=== PATIENT | female | born 1935 | race Caucasian/White ===

== ENCOUNTER 2017-02-19 15:58 | Inpatient (IN) | payer MEDICARE, BC ==
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
--- NOTE | ~2017-02-19 | HP ---
History And Physical [address] [place]. [address] NAME: MOHSEN KILGORE : 33 STATUS : ADM [facility]#: [id number] AGE: 81 ADM/REG DATE : 02/19/17 MR#: [id number] REPORT SERV DATE: 02/19/17 DICTATED BY: ARTURO CERRATO DATE: 02/19/17 REPORT STATUS : Draft TRANSCRIBED BY: MODL DATE: 02/19/17 DATE OF ADMISSION: 02/19/2017 ADMISSION DIAGNOSIS: Inferior IL. HISTORY OF PRESENT ILLNESS: Ms Kilgore is an 81-year-old female who presented to [facility] ED via EMS with a presumptive diagnosis of an acute inferior IL based on EKG in the field. I discussed the case with the ER physician who had reviewed the EKG, and based on the presumptive diagnosis of inferior IL, we decided to bring the patient to the color laboratory technician emergently upon arrival. I briefly evaluated her and had a conversation with her before we proceeded with PCI. She informed me she was having severe chest discomfort. Per EMS, this has started three days prior, but was acutely worse today. Apparently, it took significant convincing to have the patient come with EMS as she was initially resistant. She denied any syncope or palpitations. She denied any radiation of the pain. History, otherwise, limited due to the patient's discomfort. PAST MEDICAL HISTORY: 1. Atrial fibrillation. 2. History of right upper extremity embolectomy from the brachial artery, on chronic anticoagulation. 3. Diabetes. 4. Hypertension. 5. Chronic kidney disease. Most recent blood work demonstrating a creatinine of approximately 2.5. 6. History of CVA. 7. History of colon cancer. 8. Osteoarthritis. 9. History of DVT. 10.History of IVC filter placement. MEDICATIONS: Full med list not available at the time of dictation, but per medical record from prior admission, the patient was on amiloride/HCTZ, Lasix, Lantus, Humalog, Lopressor, and potassium chloride. FAMILY HISTORY: Positive for coronary artery disease. The patient's son had prior . PAST SURGICAL HISTORY: Cholecystectomy, hernia repair, and leg fracture. ALLERGIES: INTOLERANCE TO PENICILLIN AND CODEINE. SOCIAL HISTORY: The patient is , lives in [place]. She has a son and appears that a daughter who . History And Physical [address] [place]. [address] NAME: MOHSEN KILGORE : 33 STATUS : ADM IN PAT#: [id number] AGE: 81 ADM/REG DATE : 02/19/17 MR#: [id number] REPORT SERV DATE: 02/19/17 DICTATED BY: ARTURO CERRATO DATE: 02/19/17 REPORT STATUS : Draft TRANSCRIBED BY: MODL DATE: 02/19/17 REVIEW OF SYSTEMS: Limited review of systems is negative except as per HPI. PHYSICAL EXAMINATION: VITAL SIGNS: Upon arrival to color laboratory technician, heart rate approximately 90, blood pressure 140/90, and respiratory rate 20. 8/10 chest discomfort. HEENT: Sclerae are anicteric. Mucous membranes are moist. NECK: Supple. CARDIOVASCULAR: Irregular S1 and S2. No murmurs appreciated. PULMONARY: Diminished breath sounds bilaterally, but clear with no wheezes or rales anterolaterally. ABDOMEN: Soft, nondistended, and nontender. EXTREMITIES: The patient is unable to fully flex/extend her legs and reports being in a wheelchair chronically. She has no edema, no ulcerations. Femoral pulses are 2+ bilaterally. LABS: Available labs at time of dictation include WBC 12.7, hemoglobin 13.3, hematocrit 39.1, and platelets 216. INR of 1.7. Additional labs pending. EKG: EKG demonstrated atrial fibrillation with ST elevations in inferior leads and ST depressions in V1 through V3 consistent with acute evolving inferior IL. Cardiac cath dictated separately, but notable for single-vessel obstructive disease involving the mid RCA, thrombotic, which was treated with a 2.5 x 32 MARJ. IMPRESSIONS/RECOMMENDATIONS: 1. Acute inferior myocardial infarction, status post primary percutaneous coronary intervention to the culprit mid right coronary artery with a drug-eluting stent. 2. Chronic kidney disease. 3. Diabetes. 4. Atrial fibrillation. 5. Chronic anticoagulation with Coumadin. The patient will be admitted to CCU. She will be treated with dual anti-platelet therapy with an aspirin and Plavix. We will continue warfarin and discuss long-term anticoagulant strategies including transition to non-vitamin K antagonist versus Plavix/Coumadin plus or minus short course of aspirin. We will perform an echocardiogram in the morning as an LV gram was not performed due to renal insufficiency. We will hydrate the patient and manage her diabetes with a basal bolus insulin regimen. She will be treated with standard post IL medications including beta-godwin, and we will consider addition of AFRICA prior to discharge based on creatinine. We will not start this medication yet. Additional recommendations forthcoming. ARIEL/LYNDA Arturo Campos History And Physical [address] [address] NAME: MOHSEN KILGORE : 33 STATUS : ADM IN PAT#: [id number] AGE: 81 ADM/REG DATE : 02/19/17 MR#: [id number] REPORT SERV DATE: 02/19/17 DICTATED BY: ARTURO CERRATO DATE: 02/19/17 REPORT STATUS : Draft TRANSCRIBED BY: MODAnibal DATE: 02/19/17 MD Saqib / [id number] CC: Arturo Cerrato MD
--- NOTE | ~2017-02-19 | DS ---
Discharge Summary [facility] [address] [place]. [address] NAME: MOHSEN KILGORE : 33 STATUS : DIS IN PAT#: [id number] AGE: 81 ADM/REG DATE : 02/19/17 MR#: [id number] REPORT SERV DATE: 03/03/17 DICTATED BY: ARTURO CERRATO DATE: 03/02/17 REPORT STATUS : Draft TRANSCRIBED BY: LYNDA DATE: 03/02/17 Data Collection from hospitalization DISCHARGE DIAGNOSES: 1. Acute inferior ST-elevation myocardial infarction. 2. Coronary artery disease. 3. Left ventricular dysfunction. 4. Diabetes. 5. Hypertension. 6. Chronic kidney disease. 7. Atrial fibrillation. 8. History of cerebrovascular accident. 9. History of colon cancer. 10.Osteoarthritis. 11.Former tobacco use. CONSULTATIONS: Lola Leahy NP PROCEDURES PERFORMED: Cardiac catheterization and percutaneous coronary intervention on 02/19/2017. MEDICATIONS: Prinivil 2.5 mg daily, Coumadin 5 mg daily, and Klor-Con 10 mEq daily. CONDITION AT DISCHARGE: Stable. DISPOSITION: The patient was discharged home on a low-sodium, cardiac diet with activities as instructed. She would follow up with me three weeks following discharge. She would follow up in the Coumadin Clinic at [facility] one week following discharge. HOSPITAL COURSE: This is an 81-year-old female who presented to the [facility] Emergency Department via EMS with a presumptive diagnosis of acute inferior myocardial infarction based on the EKG in the field. The case was discussed with the emergency room physician who had reviewed the EKG, and based on the presumptive diagnosis of inferior myocardial infarction, it was felt we would need to bring the patient to the cardiac industrial laborer emergently upon arrival. Apparently, it had taken significant convincing to have the patient come with EMS and she was initially resistant. She was admitted to the hospital at this time for further evaluation and treatment. Upon admission, INR level was 1.7. Her white blood cell count was 12.7. EKG demonstrated atrial fibrillation with ST elevation in the inferior leads and ST depressions in V1 through V3 consistent with acute evolving inferior myocardial infarction. She was taken to the cardiac industrial laborer where she underwent the above-mentioned procedure. She tolerated this well, and there were no complications. She was found to have single-vessel obstructive disease involving the mid RCA, thrombotic, which was treated with drug-eluting stent. She was admitted to the CCU. She was going to be treated with dual anti-platelet therapy with aspirin and Plavix. Warfarin was going to be continued. We discussed long-term anticoagulant strategies including transition to non-vitamin K antagonist versus Plavix/Coumadin plus or minus a short course of aspirin. Echocardiogram was going to be Discharge Summary [facility] [address] [place]. [address] NAME: MOHSEN KILGORE : 33 STATUS : DIS IN PAT#: [id number] AGE: 81 ADM/REG DATE : 02/19/17 MR#: [id number] REPORT SERV DATE: 03/03/17 DICTATED BY: ARTURO CERRATO DATE: 03/02/17 REPORT STATUS : Draft TRANSCRIBED BY: LYNDA DATE: 03/02/17 performed. The patient was going to be hydrated. We would manage her diabetes with a bolus insulin regimen. She would be treated with standard post myocardial infarction medications including beta-godwin. We would consider the addition of AFRICA inhibitor prior to discharge based on her creatinine. We would not start this medication yet. She was seen in consultation by Lola Leahy regarding diabetes management. The patient takes Humalog and Lantus at home, but she self medicates herself depending on what she thinks her blood sugar coverage should be. She does not see her primary care physician routinely. The patient has no consistency of blood sugar monitoring. She was going to be placed on a 1500-calorie diabetic/cardiac diet when she was able to eat. She would be placed on level 2 sliding scale insulin. She was going to undergo diabetes education. Hemoglobin A1c was going to be checked. The next day, her sheath was removed. There was no bleeding. She was tearful. She had no chest pain. She said she was feeling better. INR level was 1.7. Creatinine level was 1.99. Aspirin and Plavix were continued. Warfarin was going to be resumed. Coreg was increased. Echocardiogram was performed. She was evaluated by Occupational Therapy. On 02/21/2017, she said she was feeling better. She had no chest pain. White count was 10.2. Telemetry revealed atrial fibrillation. Low-dose AFRICA inhibitor was added. She was encouraged to mobilize. She had no pedal edema. Her lungs were clear. Discharge planning was performed. Her Levemir was increased. NovoLog was increased. She was still receiving level 2 sliding scale insulin. On 02/22/2017, she said she felt well. She had no chest pain. Her heart rate was controlled. INR level was 1.8. Aspirin, Plavix, and Coumadin were continued, but we would consider stopping aspirin in two to four weeks when INR level was greater than 2. She was going to be enrolled in the Coumadin Clinic. Discharge instructions were given. Due to her improved and stable condition, she was discharged home with the above-stated instructions. Information collected by: Pamela Pendleton I submit the above information as my discharge summary. TG/MODL rAturo Cerrato MD / [id number] CC: Arturo Cerrato MD
[~2017-02-19 15:58] MED LIST: AMILOR/HCTZ1 TAB PO; C5 PO; CAT1 PO; CAT2 PO; COR40 PO; DIABETA5 PO; GLUCPH PO; HALF81 PO; HCTZ25B PO; HEMOCYTET PO; HUMALOG; HUMALOG SC; KLOR-CON 1010 MEQ PO; L40 PO; L80 PO; LANTUS SC; LOP25 PO; LOVENOX1C SC; MONODOX100 MG PO; PLAVIX PO
[2017-02-19 16:34] LABS: CREATININE 1.7 MG/DL (0.55-1.02)
[2017-02-19 16:51] LABS: INTERNATIONAL NORMAL RATI 1.7 UNITS (-); PARTIAL THROMBO TIME 28.6 SEC (22.5-37.2)
[2017-02-19 16:52] LABS: BASOPHILS 0.2 %; BASOPHILS ABSOLUTE 0.02 10/3/uL (0.0-0.16); EOSINOPHILS 2.2 %; EOSINOPHILS ABSOLUTE 0.28 10/3/uL (0.0-0.53); HEMATOCRIT 39.1 % (36.0-48.0); HEMOGLOBIN 13.3 g/dL (12.0-16.0); IMMATURE GRANULOCYTES 0.3 %; IMMATURE GRANULOCYTES ABSOLUTE 0.04 10/3/uL (0.0-0.11); LYMPHOCYTES 14.5 %; LYMPHOCYTES ABSOLUTE 1.84 10/3/uL (0.67-4.30); MEAN CORPUSCULAR HEMOGLOB 28.5 pg (26.0-34.0); MEAN CORPUSCULAR VOLUME 83.9 fL (80-100); MEAN PLATELET VOLUME 11.5 fL (9.2-13.0); MONOCYTES 4.9 %; MONOCYTES ABSOLUTE 0.62 10/3/uL (0.21-1.20); NEUTROPHILS 77.9 %; NEUTROPHILS ABSOLUTE 9.88 10/3/uL (2.02-8.40); PLATELET COUNT 216 10/3/uL (150-400); PROTIME (NOT ORD) 19.4 SEC (12.0-14.5); RBC DISTRIBUTION WIDTH 13.2 % (12.0-16.0); RED CELL COUNT 4.66 10/6/uL (4.0-5.6); WHITE BLOOD CELLS 12.7 10/3/uL (4.5-10.5)
[2017-02-19 16:53] LABS: MANUAL DIFF NO %
[2017-02-19 17:14] LABS: CALCIUM, SERUM 8.1 MG/DL (8.5-10.4); CHLORIDE, SERUM 105 MMOL/L (96-112); CREATININE 1.81 MG/DL (0.55-1.02); GFR AFRICAN AMERICAN 29 ML/MIN (>=60); GFR NON AFRICAN AMERICAN 25 ML/MIN (>=60); GLUCOSE, SERUM 223 MG/DL (60-99); SODIUM, SERUM 139 MMOL/L (135-148)
[2017-02-19 17:28] LABS: BUN (BLOOD UREA NITROGEN) 22 MG/DL (6-23); CO2 (CARBON DIOXIDE) 22 MMOL/L (24-34); POTASSIUM, SERUM 3.3 MMOL/L (3.5-5.3)
[2017-02-19 17:29] LABS: CHEST PAIN PROFILE TAT 0 Hrs 09 Mins; TROPONIN I 0.36 NG/ML (<0.05)
[2017-02-20 01:14] LABS: CK-MB 60.9 NG/ML
[2017-02-20 04:56] LABS: BASOPHILS 0.3 %; BASOPHILS ABSOLUTE 0.03 10/3/uL (0.0-0.16); EOSINOPHILS 2.4 %; EOSINOPHILS ABSOLUTE 0.24 10/3/uL (0.0-0.53); HEMATOCRIT 39.4 % (36.0-48.0); HEMOGLOBIN 13.5 g/dL (12.0-16.0); IMMATURE GRANULOCYTES 0.2 %; IMMATURE GRANULOCYTES ABSOLUTE 0.02 10/3/uL (0.0-0.11); LYMPHOCYTES 18.8 %; LYMPHOCYTES ABSOLUTE 1.92 10/3/uL (0.67-4.30); MEAN CORPUS HGB CONC 34.3 g/dL (32.0-36.0); MEAN CORPUSCULAR HEMOGLOB 29.2 pg (26.0-34.0); MEAN CORPUSCULAR VOLUME 85.1 fL (80-100); MEAN PLATELET VOLUME 11.4 fL (9.2-13.0); MONOCYTES 6.5 %; MONOCYTES ABSOLUTE 0.66 10/3/uL (0.21-1.20); NEUTROPHILS 71.8 %; NEUTROPHILS ABSOLUTE 7.33 10/3/uL (2.02-8.40); PLATELET COUNT 213 10/3/uL (150-400); RBC DISTRIBUTION WIDTH 13.3 % (12.0-16.0); RED CELL COUNT 4.63 10/6/uL (4.0-5.6); WHITE BLOOD CELLS 10.2 10/3/uL (4.5-10.5)
[2017-02-20 04:57] LABS: MANUAL DIFF NO %
[2017-02-20 05:17] LABS: A/G RATIO 0.9 (0.7-1.9); ALBUMIN 2.9 G/DL (3.5-5.0); ALKALINE PHOSPHATASE 82 U/L (45-117); BUN (BLOOD UREA NITROGEN) 22 MG/DL (6-23); CALCIUM, SERUM 8.5 MG/DL (8.5-10.4); CHLORIDE, SERUM 104 MMOL/L (96-112); CHOL/HDL RATIO(NOT ORDER) 5.9 (0-5); CHOLESTEROL 172 MG/DL (< 200); CK-MB 50.8 NG/ML; CO2 (CARBON DIOXIDE) 23 MMOL/L (24-34); CPK 410 U/L (0-200); CREATININE 1.99 MG/DL (0.55-1.02); GFR AFRICAN AMERICAN 26 ML/MIN (>=60); GFR NON AFRICAN AMERICAN 23 ML/MIN (>=60); GLOBULIN 3.3 G/DL (2.5-4.1); GLUCOSE, SERUM 190 MG/DL (60-99); HDL CHOLESTEROL 29 MG/DL (> 49); LDL CHOLESTEROL 106 MG/DL (< 130); NON-HDL CHOLESTEROL 143 MG/DL (< 160); POTASSIUM, SERUM 3.8 MMOL/L (3.5-5.3); SGOT(AST) 63 U/L (5-40); SGPT(ALT) 14 U/L (5-65); SODIUM, SERUM 139 MMOL/L (135-148); TOTAL PROTEIN 6.2 G/DL (6.0-8.5); TRIGLYCERIDE 185 MG/DL (< 150)
[2017-02-20 05:21] LABS: CKMB INDEX (NOT ORD) 12.4; TOTAL BILIRUBIN 0.9 MG/DL (0-1.2)
[2017-02-20 15:55] LABS: CK-MB 25.8 NG/ML
[2017-02-20 15:56] LABS: CKMB INDEX (NOT ORD) 8.5
[2017-02-21 06:19] LABS: HEMATOCRIT 37.6 % (36.0-48.0); HEMOGLOBIN 12.9 g/dL (12.0-16.0)
[2017-02-21 06:26] LABS: INTERNATIONAL NORMAL RATI 1.6 UNITS (-); PROTIME (NOT ORD) 18.8 SEC (12.0-14.5)
[2017-02-21 06:30] LABS: BUN (BLOOD UREA NITROGEN) 19 MG/DL (6-23); CHLORIDE, SERUM 106 MMOL/L (96-112); CO2 (CARBON DIOXIDE) 24 MMOL/L (24-34); GFR AFRICAN AMERICAN 28 ML/MIN (>=60); GFR NON AFRICAN AMERICAN 24 ML/MIN (>=60); GLUCOSE, SERUM 179 MG/DL (60-99); SODIUM, SERUM 141 MMOL/L (135-148)
[2017-02-22 06:01] LABS: BASOPHILS 0.5 %; BASOPHILS ABSOLUTE 0.05 10/3/uL (0.0-0.16); EOSINOPHILS ABSOLUTE 0.48 10/3/uL (0.0-0.53); HEMATOCRIT 36.2 % (36.0-48.0); HEMOGLOBIN 12.4 g/dL (12.0-16.0); IMMATURE GRANULOCYTES 0.2 %; IMMATURE GRANULOCYTES ABSOLUTE 0.02 10/3/uL (0.0-0.11); LYMPHOCYTES 25.3 %; LYMPHOCYTES ABSOLUTE 2.43 10/3/uL (0.67-4.30); MEAN CORPUS HGB CONC 34.3 g/dL (32.0-36.0); MEAN CORPUSCULAR HEMOGLOB 29.2 pg (26.0-34.0); MEAN CORPUSCULAR VOLUME 85.2 fL (80-100); MONOCYTES 6.9 %; MONOCYTES ABSOLUTE 0.66 10/3/uL (0.21-1.20); NEUTROPHILS 62.1 %; NEUTROPHILS ABSOLUTE 5.96 10/3/uL (2.02-8.40); PLATELET COUNT 205 10/3/uL (150-400); RBC DISTRIBUTION WIDTH 13.3 % (12.0-16.0); RED CELL COUNT 4.25 10/6/uL (4.0-5.6); WHITE BLOOD CELLS 9.6 10/3/uL (4.5-10.5)
[2017-02-22 06:09] LABS: INTERNATIONAL NORMAL RATI 1.6 UNITS (-); PROTIME (NOT ORD) 18.9 SEC (12.0-14.5)
[2017-02-22 06:12] LABS: BUN (BLOOD UREA NITROGEN) 22 MG/DL (6-23); CALCIUM, SERUM 8.4 MG/DL (8.5-10.4); CHLORIDE, SERUM 107 MMOL/L (96-112); CO2 (CARBON DIOXIDE) 26 MMOL/L (24-34); GFR AFRICAN AMERICAN 28 ML/MIN (>=60); GFR NON AFRICAN AMERICAN 24 ML/MIN (>=60); GLUCOSE, SERUM 164 MG/DL (60-99); MANUAL DIFF NO %; SODIUM, SERUM 141 MMOL/L (135-148)
[2017-02-22] MEDS ORDERED: ASAB PO (11:45)
[2017-02-22] MEDS ORDERED: LIPITOR40 PO (11:46)
[2017-02-22] MEDS ORDERED: COREG6 PO (11:47)
[2017-02-22] MEDS ORDERED: PLAVIX PO (11:48)
[2017-02-22] MEDS ORDERED: PRIN2.5 PO (11:49)
== END 2017-02-22 12:50 | disposition home or self-care (01) | DRG 247 ==
LOC: SSU2 15:58 → CCU 17:26 → 6NO 02-20 11:09
PROVIDERS: Internal Medicine Cardiovascular Disease
PROC: 027034Z Dilation of Coronary Artery, One Artery with Drug-eluting Intraluminal Device, Percutaneous Approach (ICD-10-PCS; principal; 2017-02-19)
PROC: 4A023N7 Measurement of Cardiac Sampling and Pressure, Left Heart, Percutaneous Approach (ICD-10-PCS; 2017-02-19)
PROC: B2151ZZ Fluoroscopy of Left Heart using Low Osmolar Contrast (ICD-10-PCS; 2017-02-19)
PROC: B2111ZZ Fluoroscopy of Multiple Coronary Arteries using Low Osmolar Contrast (ICD-10-PCS; 2017-02-19)
DX: I21.19 ST elevation (STEMI) myocardial infarction involving other coronary artery of inferior wall (principal); E11.22 Type 2 diabetes mellitus with diabetic chronic kidney disease; I50.9 Heart failure, unspecified; I13.0 Hypertensive heart and chronic kidney disease with heart failure and stage 1 through stage 4 chronic kidney disease, or unspecified chronic kidney disease; I82.5Z1 Chronic embolism and thrombosis of unspecified deep veins of right distal lower extremity; I25.10 Atherosclerotic heart disease of native coronary artery without angina pectoris; I48.91 Unspecified atrial fibrillation; N18.2 Chronic kidney disease, stage 2 (mild); M19.90 Unspecified osteoarthritis, unspecified site; I87.2 Venous insufficiency (chronic) (peripheral); K58.9 Irritable bowel syndrome, unspecified; Z86.73 Personal history of transient ischemic attack (TIA), and cerebral infarction without residual deficits; Z85.038 Personal history of other malignant neoplasm of large intestine; Z82.49 Family history of ischemic heart disease and other diseases of the circulatory system; Z98.890 Other specified postprocedural states; Z88.0 Allergy status to penicillin; Z88.5 Allergy status to narcotic agent; Z79.01 Long term (current) use of anticoagulants; Z90.49 Acquired absence of other specified parts of digestive tract; Z99.3 Dependence on wheelchair; Z87.891 Personal history of nicotine dependence; Z79.4 Long term (current) use of insulin
CPT/HCPCS: 71010; 80048; 80053; 80061; 82550; 82553; 82565; 82803; 82962; 83036; 83735; 84100; 84132; 84295; 84443; 84484; 85014; 85018; 85025; 85610; 85730; 87641; 93005; 93458; 97161-GP; 97165-GO; 99152; 99153; A9270-GY; C1725; C1769; C1874; C1887; C1894; C8929; C9606; G8978-CL-GP; G8980-CL-GP; G8987-CJ-GO; G8988-CJ-GO; G8989-CJ-GO; J0583; J2250; J3010; Q9957; Q9967